=== PATIENT | female | born 1955 | race Caucasian/White ===

== ENCOUNTER 2017-11-04 15:00 | Emergency (ER) | payer OTHER, MEDICARE ==
[~2017-11-04] VITALS: Ht 160 cm; Wt 90.0 kg
[~2017-11-04 15:00] MED LIST: ACYCLOVIR800 MG PO; AMOXICILLIN500 MG PO; AUGMENTIN875TAB PO; BACLOFEN10 MG PO; BACTRIM DS1 TAB PO; FLORASTOR250 M1 PO; HYDROXYZ HCL25 MG PO; LISINOPRIL10 MG PO; LORTAB 1010 MG PO; LORTAB 5 OR; MAXALT10 MG OR; MEDROL4 M1 OR; PHENERGAN25 M1 RE; SOMA350 MG OR; TAM75CAP PO; VICODIN OR; ZOFRAN4 MG/TAB PO
[2017-11-04] MEDS ORDERED: FLEXERIL PO (17:00)
[2017-11-04] MEDS ORDERED: TORADOL PO (17:00)
[2017-11-04 17:09] VITALS: BP 140/106
== END 2017-11-04 17:10 | disposition home or self-care (01) | DRG 563 ==
LOC: ED 15:00
DX: S39.012A Strain of muscle, fascia and tendon of lower back, initial encounter (principal); S16.1XXA Strain of muscle, fascia and tendon at neck level, initial encounter; R51 Headache; I10 Essential (primary) hypertension; V49.40XA Driver injured in collision with unspecified motor vehicles in traffic accident, initial encounter